=== PATIENT | female | born 1970 | race Caucasian/White ===

== ENCOUNTER 2017-08-24 02:05 | Inpatient (IN) | payer OTHER ==
[~2017-08-24] VITALS: Ht 170.2 cm; Wt 82.2 kg
[~2017-08-24 02:05] MED LIST: B-12 COMPL1000 MCG/1 IM; LOSARTAN POTAS100 MG PO; MELATONIN5 M1 PO; OMEPRAZOLE40 M1 PO; SUBOXONE 2 M1 TABLET SL; VITAMIN D2000 UNIT PO; VITAMIN D310000 UNI1 PO
[2017-08-24 02:23] LABS: HEMATOCRIT 40.7 % (36.0-46.0); HEMOGLOBIN 14.1 G/DL (11.9-15.5); MCH 30.7 PG (29.0-34.0); MCHC 34.6 G/DL (30.0-36.0); MCV 88.7 FL (83-99); PLATELET COUNT 159 K/uL (156-360); RBC DIS.WIDTH-CV 12.9 % (11.8-14.6); RED BLOOD COUNT 4.59 M/uL (3.80-5.20); WHITE BLOOD COUNT 7.9 K/uL (4.1-10.2)
[2017-08-24 02:33] LABS: CHLORIDE 106 mEq/L (99-109); POTASSIUM 3.6 mEq/L (3.7-5.4); SODIUM 139 mEq/L (136-147)
[2017-08-24 02:35] LABS: GLUCOSE 144 mg/dL (70-99)
[2017-08-24 02:36] LABS: TOTAL PROTEIN 6.6 g/dL (6.4-8.3)
[2017-08-24 02:37] LABS: TOTAL BILIRUBIN 2.7 mg/dL (0.0-1.0)
[2017-08-24 02:39] LABS: ALKALINE PHOSPHATASE 145 IU/L (3-129); CREATININE 0.7 mg/dL (0.6-1.3); GFR ESTIMATE (CALCULATED) > 59 mL/min/
[2017-08-24 02:40] LABS: UREA NITROGEN (BUN) 11 mg/dL (9-23)
[2017-08-24 02:41] LABS: AST (GOT) 523 IU/L (2-34)
[2017-08-24 02:42] LABS: ALT (GPT) 201 IU/L (3-49)
[2017-08-24 02:48] LABS: QUANTITATIVE HCG < 4.0 MIU/ML
[2017-08-24 03:08] LABS: LIPASE 20 U/L (1.0-51.0)
[2017-08-24 04:18] LABS: APPEARANCE SL.HAZY ((CLEAR)); BILIRUBIN SMALL; BLOOD NEGATIVE; COLOR AMBER ((YELLOW)); GLUCOSE (STRIP) NEGATIVE; KETONES NEGATIVE; LEUKOCYTES NEGATIVE; NITRITE NEGATIVE; PROTEIN (STRIP) NEGATIVE
[2017-08-24 04:38] LABS: BACTERIA RARE /HPF; EPITHELIAL CELLS 1+ /HPF; MUCUS TRACE /LPF; UCUL ADDED? NO; WHITE BLOOD CELLS 0-5 /HPF (0-5)
[2017-08-24 07:47] VITALS: BP 136/77
[2017-08-24 10:21] LABS: HEMOGLOBIN 12.9 G/DL (11.9-15.5); MCH 30.7 PG (29.0-34.0); MCHC 33.9 G/DL (30.0-36.0); MCV 90.5 FL (83-99); PLATELET COUNT 154 K/uL (156-360); RBC DIS.WIDTH-SD 42.9 % (39-53); WHITE BLOOD COUNT 7.7 K/uL (4.1-10.2)
[2017-08-24 10:45] LABS: ALBUMIN 3.5 G/DL (3.2-4.8); ALKALINE PHOSPHATASE 112 IU/L (3-129); ALT (GPT) 183 IU/L (3-49); AST (GOT) 306 IU/L (2-34); CHLORIDE 108 MEQ/L (99-109); CREATININE 0.7 MG/DL (0.6-1.3); GFR ESTIMATE (CALCULATED) > 59 mL/min/; GLUCOSE 127 mg/dL (70-99); POTASSIUM 3.6 MEQ/L (3.7-5.4); SODIUM 139 MEQ/L (136-147); TOTAL BILIRUBIN 2.1 MG/DL (0.0-1.0); TOTAL PROTEIN 5.8 G/DL (6.4-8.3); UREA NITROGEN (BUN) 8 mg/dL (9-23)
[2017-08-24] MEDS ORDERED: LYRICA100 MG PO (11:59)
[2017-08-24 12:13] VITALS: BP 152/71
[2017-08-24 13:02] LABS: LIPASE 3 U/L (1.0-51.0)
[2017-08-24 16:04] VITALS: BP 141/77
[2017-08-24 19:26] VITALS: BP 103/59
[2017-08-24 23:41] VITALS: BP 111/60
[2017-08-25 04:05] VITALS: BP 130/79
[2017-08-25 06:00] LABS: HEMATOCRIT 36.6 % (36.0-46.0); HEMOGLOBIN 12.3 G/DL (11.9-15.5); MCH 29.8 PG (29.0-34.0); MCHC 33.6 G/DL (30.0-36.0); MCV 88.6 FL (83-99); PLATELET COUNT 137 K/uL (156-360); RBC DIS.WIDTH-CV 12.8 % (11.8-14.6); RBC DIS.WIDTH-SD 41.7 % (39-53); RED BLOOD COUNT 4.13 M/uL (3.80-5.20); WHITE BLOOD COUNT 5.9 K/uL (4.1-10.2)
[2017-08-25 06:24] LABS: ALBUMIN 3.1 G/DL (3.2-4.8); ALKALINE PHOSPHATASE 93 IU/L (3-129); ALT (GPT) 132 IU/L (3-49); AST (GOT) 128 IU/L (2-34); CHLORIDE 104 MEQ/L (99-109); CREATININE 0.8 MG/DL (0.6-1.3); GFR ESTIMATE (CALCULATED) > 59 mL/min/; GLUCOSE 120 mg/dL (70-99); POTASSIUM 3.3 MEQ/L (3.7-5.4); SODIUM 137 MEQ/L (136-147); TOTAL BILIRUBIN 1.3 MG/DL (0.0-1.0); TOTAL PROTEIN 5.4 G/DL (6.4-8.3); UREA NITROGEN (BUN) 9 mg/dL (9-23)
[2017-08-25 08:24] VITALS: BP 122/78
[2017-08-25 15:56] VITALS: BP 132/80
[2017-08-25 19:25] VITALS: BP 115/62
[2017-08-25 23:45] VITALS: BP 141/92
[2017-08-26 03:42] VITALS: BP 144/90
[2017-08-26 07:11] VITALS: BP 156/78
[2017-08-26 08:49] LABS: HEMATOCRIT 35.9 % (36.0-46.0); HEMOGLOBIN 12.4 G/DL (11.9-15.5); MCH 30.2 PG (29.0-34.0); MCHC 34.5 G/DL (30.0-36.0); MCV 87.3 FL (83-99); PLATELET COUNT 145 K/uL (156-360); RBC DIS.WIDTH-CV 12.7 % (11.8-14.6); RBC DIS.WIDTH-SD 40.7 % (39-53); RED BLOOD COUNT 4.11 M/uL (3.80-5.20); WHITE BLOOD COUNT 3.7 K/uL (4.1-10.2)
[2017-08-26] MEDS ORDERED: HYDROMORPHONE HC2 MG PO (09:09)
[2017-08-26 09:14] LABS: ALKALINE PHOSPHATASE 85 IU/L (3-129); ALT (GPT) 85 IU/L (3-49); CHLORIDE 105 MEQ/L (99-109); CREATININE 0.6 MG/DL (0.6-1.3); GFR ESTIMATE (CALCULATED) > 59 mL/min/; GLUCOSE 97 mg/dL (70-99); POTASSIUM 3.4 MEQ/L (3.7-5.4); SODIUM 138 MEQ/L (136-147); TOTAL PROTEIN 5.3 G/DL (6.4-8.3); UREA NITROGEN (BUN) 6 mg/dL (9-23)
[2017-08-26 09:27] LABS: AST (GOT) 48 IU/L (2-34); TOTAL BILIRUBIN 0.6 MG/DL (0.0-1.0)
[2017-08-26 11:07] VITALS: BP 138/86
== END 2017-08-26 11:35 | disposition home or self-care (01) | DRG 419 ==
LOC: EME 02:05 → 2EAST 03:59 → EDOF 03:59 → ENRESERV 04:00 → 2EAST 04:43 → ENPENDDIS 08-26 → 2EAST 08-26 11:35
PROVIDERS: Physician Assistant Surgical; Surgery
PROC: 0FT44ZZ Resection of Gallbladder, Percutaneous Endoscopic Approach (ICD-10-PCS; principal; 2017-08-24)
DX: K80.13 Calculus of gallbladder with acute and chronic cholecystitis with obstruction (principal); R74.0 Nonspecific elevation of levels of transaminase and lactic acid dehydrogenase [LDH]; R74.8 Abnormal levels of other serum enzymes; I10 Essential (primary) hypertension; G89.29 Other chronic pain; M25.559 Pain in unspecified hip; M54.9 Dorsalgia, unspecified; G43.909 Migraine, unspecified, not intractable, without status migrainosus; K21.9 Gastro-esophageal reflux disease without esophagitis; D64.9 Anemia, unspecified; Z98.84 Bariatric surgery status; E66.9 Obesity, unspecified; Z68.28 Body mass index [BMI] 28.0-28.9, adult; Z87.891 Personal history of nicotine dependence; Z83.3 Family history of diabetes mellitus; Z80.0 Family history of malignant neoplasm of digestive organs
CPT/HCPCS: 74177; 74181; 76705; 80053; 81003; 83690; 84702; 85027; 87641; 88304; 99281; 99285; J0131; J0330; J1100; J1170; J1650; J1885; J2060; J2250; J2405; J2550; J2710; J3010; J7030; J7120; S0020; S0074